=== PATIENT | female | born 1945 | race Caucasian/White ===

== ENCOUNTER 2018-03-25 16:47 | Emergency (ER) | payer BC, MEDICARE ==
[~2018-03-25] VITALS: Ht 160 cm; Wt 70.3 kg
[~2018-03-25 16:47] MED LIST: CALC600T4 PO; CHOL400T55 PO; ESCITALOPRAM OX20 MG PO; GABA-585 PO; NORT25CA PO; SIMV40TA3 PO
--- NOTE | 2018-03-25 17:20 | PHYS DOC ---
Past Medical History Past Medical History: Fibromyalgia, GERD, High Cholesterol Additional Past Medical Histor: PRE DIABETIC Past Surgical History: Appendectomy, Cholecystectomy, Hysterectomy Additional Past Surgical Histo: PARTIAL HYST. Alcohol Use: None Drug Use: None Adult General Chief Complaint Chief Complaint: PELVIC PAIN HPI HPI Patient is a 73 year old female who presents with diffuse abdominal pain. This is been present past several days. She was seen by her GI doctor 2 days ago and started on Flagyl for presumed diverticular disease since she had similar symptoms with previous diverticulitis. However last time her symptoms were significantly improved 48 hours after starting antibiotics and they have come no better this time. Patient reports looser than usual stools since starting the metronidazole however no diarrhea, and no blood in the stool. Patient is noted since her first bout of diverticulitis which was his past summer, that she has had decreased appetite and food sensitivity and so has decreased the amount and what she eats and has lost 10 pounds since this summer. Patient reports that she is getting little to no pain relief with tramadol. Nothing really seems to make this current pain better or worse. Pain is described as achy. Patient does have previous surgical history significant for cholecystectomy, appendectomy, and partial hysterectomy. Patient denies any dysuria or hematuria. Denies any vaginal bleeding or discharge. Denies any fevers or chills.[] Review of Systems Review of Systems Constitutional: Denies fever or chills [] Eyes: Denies change in visual acuity, redness, or eye pain [] HENT: Denies nasal congestion or sore throat [] Respiratory: Denies cough or shortness of breath [] Cardiovascular: No chest pain or palpitations[] GI: See history of present illness[] : Denies dysuria or hematuria [] Musculoskeletal: Denies back pain or joint pain [] Integument: Denies rash or skin lesions [] Neurologic: Denies headache, focal weakness or sensory changes [] Endocrine: Denies polyuria or polydipsia [] All other systems were reviewed and found to be within normal limits, except as documented in this note. Current Medications Current Medications Current Medications Medications (Trade) Dose Ordered Sig/Sesar Start Time Stop Time Status Last Admin Dose Admin Hyoscyamine (Anaspaz) 0.125 mg ONCE ONCE 03/25/18 17:15 03/25/18 17:16 DC 03/25/18 17:30 0.125 MG Info (CONTRAST GIVEN -- Rx MONITORING) 1 each PRN DAILY PRN 03/25/18 17:45 03/27/18 17:44 Iohexol (Omnipaque 300 Mg/ml) 75 ml 1X ONCE 03/25/18 18:00 03/25/18 18:01 DC 03/25/18 17:55 75 ML Ketorolac Tromethamine (Toradol 30mg Vial) 30 mg 1X ONCE 03/25/18 17:15 03/25/18 17:16 DC 03/25/18 17:31 30 MG Metoclopramide HCl (Reglan Vial) 10 mg 1X ONCE 03/25/18 17:15 03/25/18 17:16 DC 03/25/18 17:30 10 MG Sodium Chloride 1,000 ml @ 125 mls/hr Q8H 03/25/18 17:45 03/25/18 17:45 125 MLS/HR Allergies Allergies Allergies Coded Allergies Type Severity Reaction Last Updated Verified No Known Drug Allergies 04/30/13 No Physical Exam Physical Exam Constitutional: Well developed, well nourished, no acute distress, non-toxic appearance. [] HENT: Normocephalic, atraumatic, bilateral external ears normal, oropharynx moist, no oral exudates, nose normal. [] Eyes: PERRLA, EOMI, conjunctiva normal, no discharge. [] Neck: Normal range of motion, no tenderness, supple, no stridor. [] Cardiovascular:Heart rate regular rhythm, no murmur [] Lungs & Thorax: Bilateral breath sounds clear to auscultation [] Abdomen: Bowel sounds normal, soft, diffuse tenderness, no rebound, no guarding , no rigidity, able to sit up without any difficulty. no pulsatile masses. [] Skin: Warm, dry, no erythema, no rash. [] Back: No tenderness, no CVA tenderness. [] Extremities: No tenderness, no cyanosis, no clubbing, ROM intact, no edema. [] Neurologic: Alert and oriented X 3, normal motor function, normal sensory function, no focal deficits noted. [] Psychologic: Affect normal, judgement normal, mood normal. [] Current Patient Data Vital Signs Vital Signs Date Time Temp Pulse Resp B/P (MAP) Pulse Ox O2 Delivery O2 Flow Rate FiO2 03/25/18 19:00 92 157/70 (99) 97 Room Air 03/25/18 16:53 98.3 16 98.3 Lab Values Laboratory Tests Test 03/25/18 17:20 03/25/18 19:08 White Blood Count 7.1 x10^3/uL (4.0-11.0) Red Blood Count 4.90 x10^6/uL (3.50-5.40) Hemoglobin 14.1 g/dL (12.0-15.5) Hematocrit 42.6 % (36.0-47.0) Mean Corpuscular Volume 87 fL (79-100) Mean Corpuscular Hemoglobin 29 pg (25-35) Mean Corpuscular Hemoglobin Concent 33 g/dL (31-37) Red Cell Distribution Width 14.6 % (11.5-14.5) H Platelet Count 274 x10^3/uL (140-400) Neutrophils (%) (Auto) 64 % (31-73) Lymphocytes (%) (Auto) 29 % (24-48) Monocytes (%) (Auto) 6 % (0-9) Eosinophils (%) (Auto) 1 % (0-3) Basophils (%) (Auto) 1 % (0-3) Neutrophils # (Auto) 4.5 x10^3uL (1.8-7.7) Lymphocytes # (Auto) 2.0 x10^3/uL (1.0-4.8) Monocytes # (Auto) 0.4 x10^3/uL (0.0-1.1) Eosinophils # (Auto) 0.1 x10^3/uL (0.0-0.7) Basophils # (Auto) 0.1 x10^3/uL (0.0-0.2) Prothrombin Time 13.0 SEC (11.7-14.0) Prothrombin Time INR 1.0 (0.8-1.1) Sodium Level 140 mmol/L (136-145) Potassium Level 4.5 mmol/L (3.5-5.1) Chloride Level 102 mmol/L (98-107) Carbon Dioxide Level 29 mmol/L (21-32) Anion Gap 9 (6-14) Blood Urea Nitrogen 6 mg/dL (7-20) L Creatinine 0.8 mg/dL (0.6-1.0) Estimated GFR (Cockcroft-Gault) 70.7 BUN/Creatinine Ratio 8 (6-20) Glucose Level 130 mg/dL (70-99) H Calcium Level 9.8 mg/dL (8.5-10.1) Total Bilirubin 1.1 mg/dL (0.2-1.0) H Aspartate Amino Transferase (AST) 41 U/L (15-37) H Alanine Aminotransferase (ALT) 34 U/L (14-59) Alkaline Phosphatase 82 U/L (46-116) Troponin I Quantitative < 0.017 ng/mL (0.000-0.055) Total Protein 8.5 g/dL (6.4-8.2) H Albumin 4.0 g/dL (3.4-5.0) Albumin/Globulin Ratio 0.9 (1.0-1.7) L Urine Collection Type Unknown Urine Color Yellow Urine Clarity Clear Urine pH 6.0 Urine Specific [place] >=1.030 Urine Protein Negative mg/dL (NEG-TRACE) Urine Glucose (UA) Negative mg/dL (NEG) Urine Ketones (Stick) Negative mg/dL (NEG) Urine Blood Negative (NEG) Urine Nitrite Negative (NEG) Urine Bilirubin Negative (NEG) Urine Urobilinogen Dipstick 0.2 mg/dL (0.2 mg/dL) Urine Leukocyte Esterase Small (NEG) Urine RBC 0 /HPF (0-2) Urine WBC 5-10 /HPF (0-4) Urine Squamous Epithelial Cells Many /LPF Urine Bacteria Few /HPF (0-FEW) Laboratory Tests 18 17:20 Laboratory Tests 18 17:20 EKG EKG EKG shows a sinus tachycardia at 101 bpm, no ST elevation, normal axis, normal QTC,[] Radiology/Procedures Radiology/Procedures CT scan of the abdomen and pelvis FINDINGS: Heart is normal in size. No pericardial or pleural effusion. Clear lung bases. Too small to characterize low attenuating lesion is seen in several segment 4A measuring 1.2 cm (series 2 image 20) another segment 4A lesion measuring 9 mm (series 2 image 13). Segment 6 lesion measuring 7 mm (series 2 image 35). Status post cholecystectomy. Spleen is not enlarged and show no focal lesion. Pancreas within normal limits without peripancreatic inflammatory changes or focal pancreatic lesion. Adrenal glands show no focal mass. No free pelvic fluid or ascites. No nephrolithiasis or hydronephrosis. No suspicious renal lesion. No enlarged retroperitoneal or pelvic adenopathy. Shotty mesenteric lymph nodes as seen, nonspecific. No bowel obstruction. Urinary bladder is within normal limits. Status post hysterectomy. No pneumoperitoneum. No suspicious bony lesion. IMPRESSION: 1. Scattered indeterminate liver lesions. Differential diagnoses includes cystic biliary hamartomas, hemangiomas or less likely metastasis. Nonemergent MRI of the abdomen with IV contrast can be obtained for further evaluation. 2. Mildly enlarged mesenteric lymph nodes, nonspecific and may be reactive or secondary to mild mesenteric adenitis.[] Course & Med Decision Making Course & Med Decision Making Pertinent Labs and Imaging studies reviewed. (See chart for details) ED course: Patient arrived, was placed in bed, and tolerated exam well. Patient transported to and from CT without any complications. Patient did get significant pain relief with the medications administered while in the emergency department. At the return of the labs and imaging these were discussed with the patient, her , as well as Dr. KOEHLER, her GI doctor. Given the lack of diverticular findings and the diagnosis of mesenteric adenitis on the CT scan, we'll stop her Flagyl and treat her discomfort with similar medicines to what was administered in the emergency department. All parties voiced understanding. All questions were answered. Patient was discharged in improved condition. Medical decision making: There is no evidence of obstruction, perforation, urinary tract infection, nor other significant intra-abdominal or pelvic pathology present. No evidence of acute coronary syndrome.[] Dragon Disclaimer Dragon Disclaimer This electronic medical record was generated, in whole or in part, using a voice recognition dictation system. Departure Departure Impression: Primary Impression: Mesenteric adenitis Disposition: 01 HOME, SELF-CARE Condition: GOOD Referrals: FABIÁN VALENZUELA MD (PCP) Follow up in 2 days Patient Instructions: Mesenteric Adenitis Additional Instructions: Drink plenty of fluids. He may stop taking the metronidazole/FLAGYL. Follow-up with your regular doctor and GI specialist in 2 days. Return to the ER if worsening pain or any other concerns. Scripts Hyoscyamine Sulfate (LEVSIN) 0.125 Mg Tablet 0.125 MG PO QID, #30 TAB Prov: TERESA PAL DO 03/25/18 Meloxicam (MELOXICAM) 7.5 Mg Tablet 7.5 MG PO DAILY, #20 TAB Prov: TERESA PAL DO 03/25/18 TERESA PAL DO Mar 25, 2018 17:20
[2018-03-25 17:27] LABS: BASO # 0.1 x10^3/uL (0.0-0.2); BASO % 1 % (0-3); EOS # 0.1 x10^3/uL (0.0-0.7); EOS % 1 % (0-3); HEMATOCRIT 42.6 % (36.0-47.0); HEMOGLOBIN 14.1 g/dL (12.0-15.5); LYMPH % 29 % (24-48); MEAN CORPUSCULAR HEMOGLOBIN 29 pg (25-35); MEAN CORPUSCULAR HGB CONC 33 g/dL (31-37); MEAN CORPUSCULAR VOLUME 87 fL (79-100); MONO # 0.4 x10^3/uL (0.0-1.1); MONO % 6 % (0-9); NEUT # 4.5 x10^3uL (1.8-7.7); NEUT % 64 % (31-73); PLATELET COUNT 274 x10^3/uL (140-400); RED CELL DISTRIBUTION WIDTH 14.6 % (11.5-14.5); WHITE BLOOD COUNT 7.1 x10^3/uL (4.0-11.0)
[2018-03-25] MEDS: METOCLOPRAMIDE HCL 10 MG/2 ML VIAL. IV ONE (17:30)
[2018-03-25] MEDS: HYOSCYAMINE 0.125 MG TAB.RAPDIS PO ONE (17:30)
[2018-03-25] MEDS: KETOROLAC 30 MG/ML VIAL. IV ONE (17:31)
[2018-03-25 17:37] LABS: CALCIUM 9.8 mg/dL (8.5-10.1); CREATININE 0.8 mg/dL (0.6-1.0); GFR 70.7; POTASSIUM 4.5 mmol/L (3.5-5.1)
[2018-03-25 17:42] LABS: ALBUMIN/GLOBULIN RATIO 0.9 (1.0-1.7); TOTAL BILIRUBIN 1.1 mg/dL (0.2-1.0); TOTAL PROTEIN 8.5 g/dL (6.4-8.2)
[2018-03-25] MEDS ORDERED: CONTRAST GIVEN. MC PRN (17:45)
[2018-03-25] MEDS: IV NORMAL SALINE 500ML BAG 500 ML IV ONE (17:45)
[2018-03-25] MEDS: IV NORMAL SALINE 1000ML BAG 1,000 ML IV SCH (17:45)
[2018-03-25] MEDS: IOHEXOL 300 MG/ML 100ML VIAL. IV ONE (17:55)
--- NOTE | 2018-03-25 18:21 | EKG ---
[facility] [address] [place] [address] Test Date: 2018-03-25 Test Time: 17:33:37 Pat Name: CHIP MATSON Department: Room: Gender: F Composition Floor Layer: : 1945 Requested By: TERESA PAL Order Number: [id number] Reading MD: Measurements Intervals [place] Rate: 101 P: 5 MS: 150 QRS: 12 QRSD: 66 T: 30 QT: 332 QTc: 431 Interpretive Statements SINUS TACHYCARDIA NO SPECIFIC ECG ABNORMALITIES RI6.01 No previous ECG available for comparison
--- NOTE | 2018-03-25 18:47 | RAD ---
PQRS Compliance statement: One or more of the following individualized dose reduction techniques were utilized for this examination: 1. Automated exposure control. 2. Adjustment of the mA and/or kV according to patient size. 3. Use of iterative reconstruction technique. Indication:GENERAL ABD PAIN. History OF diverticulitis TECHNIQUE: CT abdomen and pelvis with IV contrast with multiplanar reformats. COMPARISON: None FINDINGS: Heart is normal in size. No pericardial or pleural effusion. Clear lung bases. Too small to characterize low attenuating lesion is seen in several segment 4A measuring 1.2 cm (series 2 image 20) another segment 4A lesion measuring 9 mm (series 2 image 13). Segment 6 lesion measuring 7 mm (series 2 image 35). Status post cholecystectomy. Spleen is not enlarged and show no focal lesion. Pancreas within normal limits without peripancreatic inflammatory changes or focal pancreatic lesion. Adrenal glands show no focal mass. No free pelvic fluid or ascites. No nephrolithiasis or hydronephrosis. No suspicious renal lesion. No enlarged retroperitoneal or pelvic adenopathy. Shotty mesenteric lymph nodes as seen, nonspecific. No bowel obstruction. Urinary bladder is within normal limits. Status post hysterectomy. No pneumoperitoneum. No suspicious bony lesion. IMPRESSION: 1. Scattered indeterminate liver lesions. Differential diagnoses includes cystic biliary hamartomas, hemangiomas or less likely metastasis. Nonemergent MRI of the abdomen with IV contrast can be obtained for further evaluation. 2. Mildly enlarged mesenteric lymph nodes, nonspecific and may be reactive or secondary to mild mesenteric adenitis. Electronically signed by: Terence Patel DO (03/25/2018 6:43 PM) [facility]
[2018-03-25 19:00] VITALS: BP 157/70
[2018-03-25 19:16] LABS: BILIRUBIN,URINE NEGATIVE (NEG); CLARITY,URINE CLEAR; COLOR,URINE YELLOW; NITRITE,URINE NEGATIVE (NEG); PROTEIN,URINE NEGATIVE (NEG-TRACE); UROBILINOGEN,URINE 0.2 mg/dL (0.2 mg/dL)
[2018-03-25 19:22] LABS: BACTERIA,URINE FEW /HPF (0-FEW); RBC,URINE 0 /HPF (0-2); SQUAMOUS EPITHELIAL CELL,UR MANY /LPF
[2018-03-25] MEDS ORDERED: MELO7.5T29 PO (19:44)
[2018-03-25] MEDS ORDERED: HYOS0.1264 PO (19:44)
== END 2018-03-25 20:09 | disposition home or self-care (01) ==
LOC: ER 16:47
DX: I88.0 Nonspecific mesenteric lymphadenitis (principal); M79.7 Fibromyalgia; K21.9 Gastro-esophageal reflux disease without esophagitis; E78.00 Pure hypercholesterolemia, unspecified; Z90.49 Acquired absence of other specified parts of digestive tract; Z90.89 Acquired absence of other organs; Z90.710 Acquired absence of both cervix and uterus
CPT/HCPCS: 36415; 74177; 80053; 81001; 84484; 85025; 85610; 87086; 93005; 96374; 96375; 99284; J1885; J2765; J7030; J7040; Q9967

== ENCOUNTER → 2018-04-18 | Outpatient (CLI) | payer BC ==
[2018-03-25 19:00] VITALS: BP 157/70
[~2018-04-18] MED LIST changes: +HYOS0.1264 PO; +MELO7.5T29 PO
--- NOTE | 2018-04-18 16:29 | RAD ---
EXAM: Abdomen sonogram. HISTORY: Abnormal liver on CT. TECHNIQUE: Sonographic imaging of the abdomen was performed. COMPARISON: CT dated 03/25/2018. FINDINGS: The liver is normal in size. There is hepatic steatosis. No focal hepatic lesion is seen. The gallbladder is surgically absent. The common bile duct is normal in caliber. The spleen is normal in size. The pancreas is obscured due to bowel gas. The aorta and inferior vena cava are unremarkable. The kidneys are unremarkable. IMPRESSION: 1. Hepatic steatosis. Note is made that small lesions within the liver demonstrated on the prior CT demonstrate no clear sonographic correlate. These remain indeterminant and possibly sonographically occult due to small size. These can be better assessed with a renal protocol CT or MRI. 2. Cholecystectomy. Electronically signed by: Zo Denny MD (04/18/2018 4:25 PM) [id number]
== END | disposition home or self-care (01) ==
LOC: US 13:37
PROVIDERS: ATTEND Family Medicine
DX: K76.0 Fatty (change of) liver, not elsewhere classified (principal); Z90.49 Acquired absence of other specified parts of digestive tract
CPT/HCPCS: 76700

== ENCOUNTER → 2018-04-26 | Outpatient (CLI) | payer BC ==
[~2018-04-26] MED LIST changes: +GADOBUTROL 7.5 MMOL/7.5 ML VIAL IV ONE
--- NOTE | 2018-04-26 16:57 | RAD ---
MRI study of the abdomen with and without contrast Clinical indications: Liver lesions seen on CT study dated March 25, 2018. Occult by recent ultrasound. COMPARISON: CT study of the abdomen dated March 25, 2018. Technique: T1 and T2 weighted MRI sequences of the abdomen or performed in the axial and coronal planes. In phase and out of phase MRI sequences were performed as well. After IV infusion of 6 cc of Gadavist, multiphase T1-weighted MRI sequences of the abdomen were performed. Findings: Again seen are the [address] All 3 of these lesions do not enhance consistent with benign cysts. No other liver lesions are seen. Spleen is not enlarged. Both kidneys are normal. No adrenal mass is evident. No pancreatic mass is seen. Small subcentimeter cyst of the tail of the pancreas is seen. The gallbladder is surgically absent. No abnormal dilatation of the extra hepatic biliary tree is seen given cholecystectomy. No focal aneurysmal dilatation of the abdominal aorta is seen. No enlarged abdominal lymphadenopathy is evident. No ascites is seen. IMPRESSION: Liver lesions seen by CT represent benign cysts by MRI. Tiny subcentimeter pancreatic cyst. Electronically signed by: Lucho Forbes MD (04/26/2018 4:53 PM) [id number]
== END | disposition home or self-care (01) ==
LOC: MRI 10:34
PROVIDERS: ATTEND Family Medicine
DX: K76.89 Other specified diseases of liver (principal); E11.9 Type 2 diabetes mellitus without complications
CPT/HCPCS: 74183; A9585